=== PATIENT | female | born 1955 | race Caucasian/White ===

== ENCOUNTER 2016-12-28 15:25 | Emergency (ER) | payer MEDICARE ==
[2016-12-28] VITALS (7 sets, daily range): BP systolic 120–162; BP diastolic 62–95; PULSE 65–81; RESP 9–16; O2SAT 97–99
[~2016-12-28] VITALS: Ht 160 cm; Wt 60.0 kg
[~2016-12-28 15:25] MED LIST: ATOR20TA65 PO; BUPR150T9 PO; CYCL10TA9 PO; HYDR-3090 PO; LOSA1TAB35 PO; MULT-1018 PO; MULT-1073 PO; OLME20TA3 PO; OXYC-407 PO
[2016-12-28 16:07] LABS: BASOPHILS % (AUTO) 0.5 % (0-3); EOSINOPHILS % (AUTO) 1.1 % (0-5); MONOCYTES % (AUTO) 8.3 % (4-12); Mean Corpuscular Hemoglobin 31.3 pg (27.0-35.0); Mean Corpuscular Volume 88.4 fL (81-100); NEUTROPHILS % (AUTO) 49.9 % (40-74); Platelet Count 263 bil/L (150-400)
--- NOTE | 2016-12-28 16:26 | DRSVH ---
PROCEDURE: X-RAY CHEST ONE VIEW, PORTABLE ([id number]) INDICATIONS: CHEST PAIN TECHNIQUE: One view of the chest was acquired. COMPARISON: [facility], CT, CT CHEST ABD PELVIS W CON, 04/24/2015, 12:10. [facility], CT, CT ABD PELVIS W CON, 10/07/2016, 11:49. FINDINGS: Surgical changes and devices: None. Lungs and pleura: No pleural effusions or pneumothorax. Hyperinflation is present. Mediastinum: Mediastinal contours appear normal. Heart size is normal. Bones and chest wall: No suspicious bony lesions. Overlying soft tissues appear unremarkable. IMPRESSION: No acute pulmonary process. Dictated by: Leidy Ely M.D. on 12/28/2016 at 16:23 Approved by: Leidy Ely M.D. on 12/28/2016 at 16:25
[2016-12-28 16:33] LABS: TROPONIN T < 0.010 ug/L (0.0-0.011)
--- NOTE | 2016-12-28 16:37 | ED.REPORT ---
HPI-General Illness Date of Service Dec 28, 2016 ED Provider: Donta Javier MD A 59 year old lady with history of hypertension, pancreatic cyst and colon cancer (in remission) s/p resection presents to the ED with sudden onset, left- sided chest pain that began 1230 this afternoon. [place] during symptom onset. The pain has been consent since onset and she describes the pain as a pressure in the center of her chest. She rates her current pain as a 3/10 and the worst pain as a 10/10. She took 2 Aspirin prior to arrival with little relief. She denies any similar previous symptoms. The pain is not exacerbated by deep breath and does not radiate to her jaw or extremities. She denies any SOB, headache, visual disturbances, constipation, fevers, chills, diarrhea, hematuria, hematochezia, abdominal pain or new onset rash. Patient denies any cardiac family history, history of smoking or history of blood clots. Nursing Notes Stated Complaint: CHEST PAIN Chief Complaint: Chest Pain Nursing Notes Reviewed: Yes Allergies: Coded Allergies: Penicillins (Verified Allergy, Unknown, Nausea,Vomiting, 12/28/16) Scheduled Atorvastatin Calcium (Atorvastatin Calcium) 20 Mg Tablet 20 MG PO DAILY Bupropion HCl (Zyban) 150 Mg Tablet.er 150 MG PO BID Cyclobenzaprine (Cyclobenzaprine) 10 Mg Tablet 10 MG PO PRN Losartan/HCTZ 100-12.5 mg (Losartan/HCTZ 100-12.5 mg) 1 Each Tablet 1 EACH PO DAILY Multivitamin (Multi Vitamin Daily) 1 Each Tablet 1 EACH PO DAILY Multivits-Min/FA/Lycopene/Lut (Centrum Silver Tablet) 1 Each Tablet 1 EACH PO DAILY Olmesartan (Benicar) 20 Mg Tablet 20 MG PO DAILY Scheduled PRN Hydrocodone-Acetaminophen 5-300 mg (Hydrocodone-Acetaminophen 5-300 mg) 1 Each Tablet 1 TABLET PO Q4H PRN PRN For Pain Oxycodone HCl/Acetaminophen 5-325 (Endocet 5-325) 1 Each Tablet 1 EACH PO PRN PRN PRN For Pain General Time Seen by MD: 16:00 Chief Complaint Chest pain Hx Obtained From: Patient Arrived By: Walk-in Sudden in Onset?: Yes Onset Occurred: 1 - 4 hours ago Symptom Duration: Since onset Location: : Chest Quality: Painful, Pressure Radiation: : Does not radiate Severity: Current: Pain level 3 out of 10 Severity: Maximum: Pain level 10 out of 10 Associated with: Reports: Chest pain, Denies: Abdominal pain, Fever, Headache, Nausea, Numb extremities, Shortness of breath, Vomiting Pertinent Negative: Pt denies other symptoms Pertinent Negative: Exacerbated by nothing, Relieved by nothing Recent Healthcare: No recent hospitalization, Recent doctor visit Past Medical History Past Medical History 1. Hypertension 2. NET 3. 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 Family History Colon Cancer Denies: CAD < 40 years old, Coronary artery disease, Diabetes mellitus, Hypertension Smoking History Never Smoker Social History Other Social History: Good social support, Local resident Ambulatory Status Independent Review of Systems Full Review of Systems Constitutional: Denies: Chills, Fever Eyes: Denies: Blurred bilateral, Visual loss bilateral Respiratory: Denies: Shortness of breath Cardiovascular: Reports: Chest pain GI: Denies: Abdominal pain, Constipation, Diarrhea, Hematochezia, Nausea, Vomiting Female: Denies: Hematuria Skin: Denies Rash Neurologic: Denies: Headache, Vision change Complete sys rev & neg: except as marked. Physical Exam Nursing note and vitals reviewed. Constitutional: Well-developed, well-nourished. Not diaphoretic. Head: Normocephalic and atraumatic. Mouth/Throat: Oropharynx is clear and moist. No oropharyngeal exudate. Eyes: EOM are normal. Pupils are equal, round, and reactive to light. Left lid droop - no significant change from prior. Neck: Supple, no tracheal deviation. Cardiovascular: Normal rate, regular rhythm. Equal and intact distal pulses throughout. Pulmonary/Chest: Effort normal and breath sounds normal. No respiratory distress. Abdominal: Soft. No distension. There is no tenderness, rebound, or guarding. Musculoskeletal: Range of motion grossly intact, moving all extremities. No edema or tenderness appreciated. Neurological: AOx3. Grossly nonfocal exam. Strength and sensation intact and equal to bilateral upper and lower extremities. Skin: Warm and dry, no rashes or pallor appreciated. Psychiatric: Appropriate mood and affect. Behavior appears normal. Vital Signs Vital Signs Date Time Temp Pulse Resp B/P Pulse Ox O2 Delivery O2 Flow Rate FiO2 12/28/16 18:20 81 15 120/62 99 Room Air 12/28/16 18:00 65 10 129/68 99 Room Air 12/28/16 17:30 76 12 125/62 97 Room Air 12/28/16 17:12 74 9 139/62 98 Room Air 12/28/16 16:42 66 15 133/73 99 Room Air 12/28/16 16:00 71 13 156/74 99 Room Air 12/28/16 15:31 36.0 73 16 162/95 99 Room Air Interpretation & Diagnostics Lab Results Interpretation Result Diagram: 12/28/16 1603 12/28/16 1603 Test 12/28/16 16:03 12/28/16 16:04 White Blood Count 6.5th/mm3 (3.8-10.1) Red Blood Count 4.15mil/mm3 (3.90-5.20) Hemoglobin 13.0g/dL (12.0-15.6) Hematocrit 36.7% (35.0-46.0) Mean Corpuscular Volume 88.4fL (81-100) Mean Corpuscular Hemoglobin 31.3pg (27.0-35.0) Mean Corpuscular Hemoglobin Concent 35.4% (32.0-37.0) Red Cell Distribution Width 11.8% (12.3-15.4) Platelet Count 263bil/L (150-400) Neutrophils (%) (Auto) 49.9% (40-74) Lymphocytes (%) (Auto) 40.0% (14-46) Monocytes (%) (Auto) 8.3% (4-12) Eosinophils (%) (Auto) 1.1% (0-5) Basophils (%) (Auto) 0.5% (0-3) Sodium Level 141mEq/L (134-144) Potassium Level 3.9mEq/L (3.5-5.2) Chloride Level 104mEq/L (97-108) Carbon Dioxide Level 24mmol/L (18-29) Blood Urea Nitrogen 17mg/dL (8-27) Creatinine 0.90mg/dL (0.57-1.00) Estimat Glomerular Filtration Rate 91mL/min (>59) Glucose Level 84mg/dL (60-99) Calcium Level 9.9mg/dL (8.5-10.1) Magnesium Level 2.2mg/dL (1.6-2.6) Total Bilirubin 0.2mg/dL (0.0-1.2) Aspartate Amino Transf (AST/SGOT) 15U/L (0-50) Alanine Aminotransferase (ALT/SGPT) 11U/L (0-32) Alkaline Phosphatase 59U/L (25-165) Troponin T < 0.010ug/L (0.0-0.011) Total Protein 7.1g/dL (6.4-8.4) Albumin 4.2g/dL (3.4-5.0) Hold Garcia Top Tube Received (Received) General Lab Results Interp 1: Complete met profile NL, CBC normal, Troponin # 1 normal, Troponin # 2 normal ECG Interpretation ECG Interpretation: Sinus Rhythm Rate 65 No prior for comparison Time: 15:51 Interpreted by: ED physician X-Ray Chest Interpretation Chest Xray Interpretation: IMPRESSION: No acute pulmonary process. Dictated by: Leidy Ely M.D. on 12/28/2016 at 16:23 Interpretation / Wet Read by: Interpret - Radiologist CT Chest Interpretation IMPRESSION: No acute process. No pulmonary embolus. Dictated by: Bryan Hudson M.D. on 12/28/2016 at 17:38 Study type: CT pulm angiogram Interpretation / Wet Read by: Interpret - Radiologist Re-Eval/Medical Decision Med Decision/Clinical Course In summary, 61-year-old female with a PMHx notable for neuroendocrine carcinoma of the terminal ileum status post resection with recent CT showing no evidence of tumor recurrence presenting to the ED for evaluation of chest pain since earlier today. Differential includes ACS, PE, PTX, aortic dissection, myocarditis/pericarditis, abdominal etiology such as cholecystitis, MSK pain. Troponin negative. HEART score of 3. EKG demonstrates sinus rhythm with no acute ischemic changes. CT PE is negative for pulmonary embolus. No evidence of pneumothorax on chest x-ray or exam. Pain not described as tearing through to the back, CXR w/ no evidence of widened mediastinum, normal neuro exam, and equal pulses to bilateral upper and lower extremities; aortic dissection seems very unlikely. Neither clinical presentation, exam, or EKG seem c/w pericarditis or myocarditis. No abdominal pain or tenderness. Rest of labs reviewed, unremarkable. Patient took aspirin prior to arrival; given some nitroglycerin here with relief of symptoms, however was only having a 2 out of 10 pain upon reassessment. Patient would likely benefit from a stress test for risk stratification - discussed doing this here or as an outpatient and decided to follow up with her primary care provider tomorrow for reevaluation. This seems reasonable given above. Very careful return precautions were discussed.. Patient agreeable to plan, no further questions. Time of Eval: 16:58 Re-Evaluation/Progress Note: Discussed current treatment plan to rule out PE with CT scan. Time of Eval: 18:06 Patient Status: Condition improved, Pain resolved Re-Evaluation/Progress Note: Pt is re-evaluated. Pain has resolved following Nitro treatment. All questiosn about the plan are addressed. She agrees to follow up with her PCP for further evaluation this week. Patient is agreeable to discharge at this time. Counseled Regarding: Diagnosis, Lab results, Need for follow-up, When/why to return to ED Discharge & Departure Primary Impression: Chest pain Chest pain type: unspecified Qualified Code: R07.9 - Chest pain, unspecified Disposition: Home Discharge Condition All VS Reviewed: Yes Condition: Stable Patient Instructions: Chest Pain (ED) Additional Instructions: Thank you for trusting us with your care this morning. Your emergency department results including examination, lab work, EKG, chest X- ray and CT are reassuring that there is no emergent cause for concern at this time, however, a clear cause of your symptoms was not identified. Please schedule a follow up appointment with your primary care physician tomorrow for a recheck. I highly recommend that you discuss scheduling a cardiac stress test and a repeat chest X-ray with your primary care physician for the next week. Please return to the emergency department for any new or worsening symptoms including any nausea, vomiting, worsening chest pain, shortness of breath, high fevers, shaking chills, weakness or one sided numbness/tingling. Referrals: John Hicks MD (PCP) Rosalie Attestation Portions of this note were transcribed by Lissette Hernandez. I, Dr. Javier personally performed the history, physical exam and medical decision-making; I reviewed and confirmed the accuracy of the information in the transcribed note. Signed by: Rosalie Multani, 12/28/16 [id number]. copies to: John Hicks MD, William B MD Dec 28, 2016 16:37 LISSETTE HERNANDEZ Dec 28, 2016 16:44
[2016-12-28 16:42] LABS: Magnesium 2.2 mg/dL (1.6-2.6)
[2016-12-28] MEDS ORDERED: 0.9% Sodium Chloride 1,000 ML IV ONE (16:58)
--- NOTE | 2016-12-28 17:43 | DRSVH ---
PROCEDURE: CT ANGIO CHEST PULMONARY EMBOLISM ([id number]) INDICATIONS: pressure like chest pain w/ cancer; eval PE, other TECHNIQUE: After the administration of intravenous contrast, 2 mm thick sections acquired from the pulmonary api alexy to the posterior costophrenic angles. 3-dimensional maximum intensity projection (MIP) coronal a nd sagittal reformats were then acquired through the thorax. For radiation dose reduction, the follo wing was used: automated exposure control, adjustment of mA and/or kV according to patient size. COMPARISON: None. FINDINGS: Image quality: Excellent. Pulmonary arteries: Pulmonary arteries are normal in size, and demonstrate no intraluminal filling d efects to suggest central pulmonary embolism. Lungs and pleura: Lungs are clear. No pleural effusions or pneumothorax. Central and peripheral ai rways are patent. Mediastinum: Heart size is normal, without pericardial effusion. No mediastinal or hilar adenopathy . Thoracic aorta is normal in caliber and enhancement. Esophagus is normal in caliber, without hiat al hernia. Bones and chest wall: No suspicious bony lesions. Ribs and thoracic spine appear intact throughout. Thyroid gland is not seen. No axillary or supraclavicular adenopathy. Abdomen: Visualized upper abdominal solid organs appear normal in the early arterial phase of enhanc ement. IMPRESSION: No acute process. No pulmonary embolus. Dictated by: Bryan Hudson M.D. on 12/28/2016 at 17:38 Approved by: Bryan Hudson M.D. on 12/28/2016 at 17:40
[2016-12-29] MEDS ORDERED: CHOL200025 PO (08:40)
[2016-12-29] MEDS ORDERED: CALC-68 PO (08:40)
== END 2016-12-28 18:22 | disposition home or self-care (01) ==
LOC: SED 15:25
DX: R07.9 Chest pain, unspecified (principal); I10 Essential (primary) hypertension; Z88.0 Allergy status to penicillin; Z85.038 Personal history of other malignant neoplasm of large intestine
CPT/HCPCS: 36415; 71010; 71275; 80053; 83735; 84484; 85025; 93005; 96360; 99285; J7030; Q9967

== ENCOUNTER 2016-12-30 07:31 | Day surgery (SDC) | payer MEDICARE ==
[~2016-12-30] VITALS: Ht 160 cm; Wt 60.0 kg
[~2016-12-30 07:31] MED LIST changes: +CALC-68 PO; +CHOL200025 PO; -LOSA1TAB35 PO; +Lactated Ringer's 1,000 ML IV ONE; -MULT-1073 PO
[2016-12-30] MEDS ORDERED: Glycopyrrolate 0.2 MG/ML 1mL Inj ONE (07:32)
[2016-12-30] MEDS ORDERED: Propofol 10,000 mCg/mL 20 mL Inj ONE (07:32)
[2016-12-30] MEDS ORDERED: Ketamine 10 mg/mL 20 mL Inj ONE (07:32)
[2016-12-30 08:04] VITALS: BP 138/89; PULSE 70; RESP 16; O2SAT 97
--- NOTE | 2016-12-30 08:53 | PCM.HPANE ---
Patient Data Date of Service: Dec 30, 2016 (0839) Surgeon Admitting Provider: Attending Provider:Kashif Arguelles MD Primary Care Physician:John Hicks MD Other Provider:Nimco Fowler Anesthesia Reason for Visit Pancreatic Cyst Ht/WT & BMI Height (Feet): 5 Height (Inches): 3 Weight (Kilograms): 60 Body Mass Index 23.00 Allergies Coded Allergies: Penicillins (Verified Allergy, Unknown, Nausea,Vomiting, 12/30/16) Past Anesthesia History Anesthesia History: Denies:: Abnormal Airway, Anesthesia Reactions, Difficult Intubation, Fam Anesthesia Reaction, Fam Malignant Hypertherm, Malignant Hyperthermia Diabetes History Hx Diabetes?: No MRSA MRSA: No Medications Reported Medications Cholecalciferol (Vitamin D3) (Vitamin D3)2,000 Unit Tablet2,000 Unit PO DAILY 12/29/16 Multivitamin (Multi Vitamin Daily)1 Each Tablet1 Each PO DAILY 30 Days Ref 0 07/16/15 Hydrocodone-Acetaminophen 5-300 mg 1 Each Tablet1 Tablet PO Q4H PRN For Pain Ref 0 07/16/15 Bupropion HCl (Zyban)150 Mg Tablet.er150 Mg PO BID 07/16/15 Cyclobenzaprine 10 Mg [id number] Mg PO PRN Ref 0 12/23/14 Oxycodone HCl/Acetaminophen 5-325 (Endocet 5-325)1 Each Tablet1 Each PO PRN PRN For Pain 12/23/14 Discontinued Reported Medications Calcium Citrate/Vitamin D2 (Calcium with Vit D Tablet)1 Each Tablet1 Each PO DAILY 12/29/16 Olmesartan (Benicar)20 Mg [id number] Mg PO DAILY Ref 0 07/16/15 Atorvastatin Calcium 20 Mg [id number] Mg PO DAILY Ref 0 12/23/14 Multivits-Min/FA/Lycopene/Lut (Centrum Silver Tablet)1 Each Tablet1 Each PO DAILY 12/23/14 Losartan/HCTZ 100-12.5 mg 1 Each Tablet1 Each PO DAILY Ref 0 12/23/14 History History of ENT Problems?: No HEENT History: Denies:: Abnormal Airway Difficult Intubation Dysphagia Sinus Problem Denture Type: Full- Upper Teeth Condition: Broken Teeth Tooth Decay Missing Teeth Hx of Heart Problems?: Yes Cardiovascular History: Positive for:: Chest Pain (12/27 ER visit-negative ID) Hypertension Denies:: AICD Atrial Fibrillation Congestive Heart Failure Heart Murmur Pacemaker Rheumatic Fever Thrombophlebitis Valvular Heart Disease Hx of Respiratory Problem?: Yes Respiratory History: Positive for:: Cough Denies:: Asthma COPD Dyspnea Emphysema Hemoptysis Pneumonia Tuberculosis Hx Neurologic Problems?: No Neurological History: Denies:: Alzheimer's Disease CVA Dementia Dizziness Headaches Seizures Hx of GI Problems?: Yes Hx of Problems?: No Genitourinary History: Denies:: HX of Hemodialysis Kidney Stones Urinary Tract Infection Female Hx: Denies:: Currently (Hysterectomy) Endometriosis Pelvic Inflammatory Problems with Breasts? Hx Musculoskeletal Problems?: No Musculoskeletal History: Denies:: Back Injury Joint Replacement Musculoskeletal Trauma Hx of Psycho/Social Problems?: No Psycho Social History: Positive for:: Hx Depression Denies:: Anxiety Bipolar Disorder Hx Surgeries?: Yes (Small bowel/colon right colectomy, hysterectomy, lumbar, chris) Hx Any Other Health Problems?: Yes Other History: Positive for:: Hospitalization Denies:: Cancer Endocrine Disease Thyroid Disease Hx Diabetes: No Hx Alcohol Use: NoHx Substance Use: No Smoking Status: Never Smoker Have You Smoked inLast 12 mo: No Stop/Bang Treated for Sleep Apnea?: No Do You Have a CPAP Machine?: No S-Snoring: Do You Snore Loudly: No T-Tired: feel tired, fatigued: No O-Obsered: Observed not breath: No P-Blood Pressure: treated: Yes B- Body Mass Index > 35 kg/m2: No A- Age over 50: Yes N- Neck Large Circumference: No G- Gender Male: No JULIA Total Score: 2 Risk Assessment Category Category 1A: Patient has history of documented sleep apnea, and HAS NOT received any narcotic, sedative or anesthesia administration during this stay. Category 1B: Patient has history of documented sleep apnea, and HAS received any narcotic , sedative or anesthesia administration during this stay Category 2: Patient has SUSPECTED Obstructive Sleep Apnea, and HAS received any narcotic , sedative or anesthesia administration during this stay. Category 3: Patient has SUSPECTED Obstructive Sleep Apnea and HAS NOT received narcotic, sedative or anesthesia administration during this stay. Category 4: Outpatient in Procedural Areas with known sleep apnea or who screen positive for High Risk via the STOP/BANG questionnaire. Exam Exam Vital Signs Vital Signs Date Time Temp Pulse Resp B/P Pulse Ox O2 Delivery O2 Flow Rate FiO2 12/30/16 08:04 70 16 138/89 97 Room Air General Appearance: Alert, Oriented X3, Cooperative, No Acute Distress HEENT/AIRWAY: MP 3, Neck Movement (from), Mouth Opening (3), Other (tmd3) Lungs: Normal Air Movement Heart: Exam Unremarkable Plan Impression Patient chart reviewed, patient interviewed and anesthestic plan with risks, benefits, and alternatives discussed, and informed consent obtained. NPO per Anesth. Guidelines: Yes ASA Physical Status: ASA2 Mod Systemic Disease Anesthetic Plan: TIVA Bene/Risks/Altern/Consents: Yes HP Complete Prior to Induction: Yes Jacobo Jean Baptiste MD Dec 30, 2016 08:53
[2016-12-30 09:35] VITALS: BP 112/83; PULSE 83; RESP 16; O2SAT 98
[2016-12-30 09:46] VITALS: BP 118/83; PULSE 80; RESP 16; O2SAT 97
[2016-12-30 10:03] VITALS: BP 123/84; PULSE 75; RESP 16; O2SAT 100
--- NOTE | 2016-12-30 18:22 | ENDO ---
[address] [address] ENDOSCOPY PROCEDURE PATIENT: ALVINO PAULA : 1955 MR#: [id number] ADMIT: 12/30/2016 JOB ID: [id number] PROCEDURE: Endoscopic ultrasound exam (EUS). INDICATION: Pancreatic cyst. The patient had a previous EUS with FNA done approximately a year ago which showed findings based on fluid analysis consistent with a nonmucinous cyst. Repeat EUS exam is being performed today. Based on cross-sectional imaging the cyst appears to be stable in size. Please see Dr. Jacobo Jean Baptiste's anesthesia report for details regarding ASA classification, Mallampati score, and medications. INSTRUMENT USED: [employer] ECT 180 linear echoendoscope. PROCEDURE DETAILS: After informed consent was obtained, the patient was brought into the GI suite, where she was placed on oxygen via nasal cannula and monitored with continuous pulse oximeter, telemetry, and blood pressure monitoring. A time-out was performed, then she was placed in the left lateral decubitus position and medications were administered for sedation. A bite block was placed. The standard EGD scope was inserted through the bite block and advanced under direct visualization to the second portion of the duodenum. Linear echo endoscopic imaging demonstrated the followin. In the proximal body of the pancreas there was an approximately 11.5 mm x 6.2 mm well-circumscribed hypoechoic lesion. This lesion did not appear to be communicating with the main pancreatic duct. Using a 22-gauge [employer] needle, the cyst was aspirated and completely collapsed. Approximately 1.5 mL of straw-colored fluid was obtained. The specimen was then placed in tubing to be sent for molecular analysis and cytology. The main pancreatic duct was visualized and appeared unremarkable. It appeared to be normal in course and caliber. The splenic artery and vein were identified and appeared to have normal flow. 2. The superior mesenteric artery was identified and appeared unremarkable. 3. The celiac axis appeared normal. 4. The common bile duct was identified and appeared to be normal in caliber. 5. The portal vein was identified and flow was noted. 6. Examined portions of the left lobe of the liver revealed no abnormalities. The left adrenal gland was identified and appeared unremarkable. IMPRESSION: An 11.5 mm x 6.2 mm well-circumscribed cyst in the neck of the pancreas status post aspiration. RECOMMENDATIONS: 1. Await cytology and molecular analysis results. 2. Follow up in GI Clinic in 2-4 weeks. 3. Cipro 500 mg for three days for prophylaxis. MTDD
--- NOTE | 2016-12-31 12:02 | PCM.ANEP1 ---
Post Anesthesia PACU Phase 1 Assessment Date of Service: Dec 30, 2016 Anesthetic Administered: TIVA Level of Alertness: Awake, talking MEEHAN's with Equal Strength: Yes Pain: No Pain Scale Score: 0 Nausea or Vomiting: No CV Function & Hydration Stable: Yes Airway Device: none Oxygen Delivery: Nasal Cannula Lungs: Normal Air Movement PACU Phase 2 Assessment Complications: No Follow up Care: N/A Patient Instructions Provided: N/A Jacobo Jean Baptiste MD Dec 31, 2016 12:02
== END 2016-12-30 23:59 | disposition home or self-care (01) ==
LOC: END 07:31
PROVIDERS: ATTEND Internal Medicine Gastroenterology
DX: K86.2 Cyst of pancreas (principal); I10 Essential (primary) hypertension; R05 Cough; F32.9 Major depressive disorder, single episode, unspecified; Z79.899 Other long term (current) drug therapy; Z88.0 Allergy status to penicillin
CPT/HCPCS: 43238; J2250; J7120